=== PATIENT | female | born 1960 | race Caucasian/White ===

== ENCOUNTER → 2017-09-19 14:41 | Outpatient (CLI) | payer OTHER, SELFPAY ==
--- NOTE | 2017-09-19 14:43 | HPBI_ITS ---
MAMMOGRAPHY - BILATERAL SCREENING REASON FOR EXAM: Female, 57 years old. Routine annual screening examination. PERTINENT HISTORY: Non-contributory. TECHNIQUE: Digital bilateral breast hammad (3D mammographic acquisition) in the CC and MLO projections. 2-D mediolateral oblique (MLO) and craniocaudad (CC) views of both breasts were obtained. CAD: Full Field Digital Mammography with Computer Added Detection was performed. COMPARISON: Comparison is made with prior study dated August 02, 2016 and July 26, 2015. FINDINGS: Breast Composition: There are scattered areas of fibroglandular density. There are no dominant masses or suspicious calcifications. Persistent area of architectural distortion in the central left breast. This was worked up on prior examination with additional views. No mass lesion is seen. A repeat sonogram is recommended. No other significant abnormalities are identified. There has been no significant change since the prior study. HPBI/SCREENING MAMM (CAD), BILAT IMPRESSION: Stable bilateral screening mammogram. Correlation with ultrasound of the left breast is recommended for further evaluation. ASSESSMENT CATEGORY: BIRADS Category 0: Incomplete. Need additional imaging evaluation. A letter regarding these results will be sent to the patient by the facility within 30 days. Approximately 10% of breast cancers are not detected by mammography. A normal mammogram should not delay biopsy of a clinically suspicious abnormality. [id number] Electronically Signed: Rhys Rubio MD at 16:07 EST Tel [phone], Service support ,
== END ==
PROVIDERS: Family Provider Family Medicine; PCP Family Medicine; Visit Provider Family Medicine
DX: Z12.31 Encounter for screening mammogram for malignant neoplasm of breast (principal); Z80.41 Family history of malignant neoplasm of ovary
CPT/HCPCS: 77063; 77067

== ENCOUNTER → 2017-09-25 10:15 | Outpatient (CLI) | payer OTHER, SELFPAY ==
--- NOTE | 2017-09-25 10:18 | US_ITS ---
STUDY: ULTRASOUND TRANSVAGINAL CLINICAL: Female, 57 years old. Status post hysterectomy, history of uterine cancer, family history of ovarian cancer TECHNIQUE: Transvaginal COMPARISON: Prior study of August 02, 2016 FINDINGS: Uterus is absent in accordance with history of hysterectomy. Normal right ovary, measuring 2.7 x 2.3 x 1.6 cm. There are multiple follicles without a dominant cyst. The left ovary was not identified. There is no free fluid in the pelvis. Polycystic ovary disease: No. US/Transvaginal Non- IMPRESSION: Uterus not identified in accordance with history of hysterectomy. The left ovary was not identified. The right ovary appears normal. There is no fluid in the cul-de-sac. Electronically Signed: Cleveland Cervantes MD at 16:59 EST , Service support ,
--- NOTE | 2017-09-25 10:19 | US_ITS ---
STUDY: ULTRASOUND BREAST - LEFT REASON FOR EXAM: Female, 57 years old. Abnormal screening mammogram. TECHNIQUE: Axial and longitudinal images of the LEFT breast were performed with a high resolution ultrasound transducer. COMPARISON: Comparison is made with prior mammogram dated September 19, 2017. FINDINGS: LEFT Breast: There is a 5 mm x 2 mm x 3 mm hypoechoic nodule with mild irregularity at the 1:30 position of the breast at 2 cm from the nipple. A biopsy is recommended for further evaluation. US/Breast Limited Unilateral IMPRESSION: Subcentimeter slightly irregular hypoechoic nodule at the 1:30 position of the breast at 2 cm from the nipple. A biopsy is recommended for further evaluation. ASSESSMENT CATEGORY: BIRADS Category 4: Suspicious - Biopsy Should Be Considered. A letter regarding these results will be sent to the patient by the facility within 30 days. Electronically Signed: Rhys Rubio MD at 12:46 EST Tel [phone], Service support ,
== END ==
PROVIDERS: Family Provider Family Medicine; PCP Family Medicine; Visit Provider Family Medicine
DX: R92.8 Other abnormal and inconclusive findings on diagnostic imaging of breast (principal); Z85.43 Personal history of malignant neoplasm of ovary; Z85.42 Personal history of malignant neoplasm of other parts of uterus; Z90.710 Acquired absence of both cervix and uterus
CPT/HCPCS: 76642; 76830; 93976

== ENCOUNTER → 2017-10-05 11:50 | Outpatient (CLI) | payer OTHER, SELFPAY ==
--- NOTE | 2017-10-05 | BRBX_PTH ---
PATIENT: ROULA TODD LOC: U#:[id number] AGE/SX: 64/F ROOM: RE10/05/[address]: Dr. Valeria Taveras MD : 1960 BED: DIS: SPEC #: [id number] RECD: 10/05/17 14:35 STATUS: GABRIELLE [place] #: [id number] MYRIAM: 10/05/17 00:[address]: Valeria Taveras DEPT: SURGICAL PATHOLOGY RECD BY: Dave Novak ENTERED: 10/05/17 14:35 SP TYPE: BREAST BX OTHR DR: Dr. Eamon Florian DO Tissues: Left breast, NOS Procedures: Surgery Specimen Level IV HEADER OPERATION: Left breast biopsy PRE-OP DIAGNOSIS: Left breast mass TISSUE SUBMITTED: Left breast mass ISCHEMIC TIME: <60 seconds FIXATION TIME: 56.5 hours MICROSCOPIC DIAGNOSIS Left breast mass, core biopsy: Fragments of benign breast tissue with a minute fibrous nodule (0.1 cm in greatest dimension). Negative for atypia or malignancy in the submitted specimen. TARAH:valentina 10/08/17 COMMENT Correlation with clinical, radiologic findings and appropriate follow up are necessary. MICROSCOPIC DESCRIPTION Slides are reviewed. GROSS DESCRIPTION Received in fixative is one container labeled with the patient's name and designated left breast. The specimen consists of multiple irregular fragments of white-yellow soft tissue that in aggregate measure 2.2 x 1.1 x 0.1 cm. The specimen is totally submitted in one cassette. / AM:valentina 10/05/17 TC:5 CPT: 00584
--- NOTE | 2017-10-05 12:00 | US_ITS ---
STUDY: ULTRASOUND BREAST - LEFT REASON FOR EXAM: Female, 57 years old. Ultrasound guided left breast biopsy. TECHNIQUE: Axial and longitudinal images of the LEFT breast were performed with a high resolution ultrasound transducer. COMPARISON: Comparison is made with prior sonogram dated September 25, 2017. FINDINGS: LEFT Breast: Under direct sonographic guidance, the surgeon performed for biopsies of the 6 mm x 4 mm x 3 mm hypoechoic nodule at the 1:30 position breast at 2 sinus or nipple. US/US Breast Biopsy 1st Lesion IMPRESSION: Successful ultrasound guided breast biopsy. ASSESSMENT CATEGORY: BIRADS Category 2: Benign. A letter regarding these results will be sent to the patient by the facility within 30 days. Electronically Signed: Rhys Rubio MD at 13:06 EST Tel [phone], Service support ,
--- NOTE | 2017-10-05 12:44 | PCM.OP.BLANK ---
Operative Report Date of Procedure: 10/05/17 Procedure: ultrasound-guided core biopsy Indications: 57 year-old female with hypoechoic irregular nodule at 130 in the left breast 2 centimeters from the nipple. Risk benefits were discussed the patient and she elected to proceed with ultrasound guided core biopsy with clip placement Description of procedure: Patient was brought into the ultrasound room in the left breast was marked. A timeout was completed verifying correct patient, procedure, site, specially, prior to beginning procedure. The last breast was prepped and draped in usual sterile fashion and using local anesthesia was obtained with 1% lidocaine with epi. The lesion was located with the ultrasound. Small incision was made with 11 blade to introduced the mammotome through the skin. Under ultrasound guidance multiple core samples were obtained using then 13-gauge mammotome and sent in formalin for pathology. The mammotome mammostar clip was then deployed into the biopsy cavity under ultrasound guidance and a picture was taken. Upon completion procedure hemostasis was obtained and a Steri-Strip and OpSite were placed. Patient was then taken to the mammography suite for clip verification. The clip was verified. The patient tolerated the procedure well and was discharged from the breast imaging department good condition. complications: none
== END ==
PROVIDERS: Family Provider Family Medicine; PCP Family Medicine; Visit Provider Surgery
DX: N63.21 Unspecified lump in the left breast, upper outer quadrant (principal)
CPT/HCPCS: 19083; 88305

== ENCOUNTER → 2017-11-09 16:40 | Outpatient (CLI) | payer OTHER, SELFPAY ==
--- NOTE | 2017-11-09 16:50 | CT_ITS ---
STUDY: CT CERVICAL SPINE WITHOUT CONTRAST REASON FOR EXAM: Female, 57 years old. Neck pain and tenderness x9 months. RADIATION DOSAGE (If Supplied By Facility): CTDIvol = ( 24.16 ) mGy, DLP = ( 493.25 ) mGycm TECHNIQUE: High resolution transaxial imaging was performed without contrast material. Sagittal and coronal images were reconstructed. Individualized dose optimization techniques were used for this CT. COMPARISON: None FINDINGS: Normal craniovertebral junction. Normal predental space. Normal lateral atlantoaxial articulations. Normal odontoid process. Cervical kyphosis may be positional. Normal vertebral bodies and posterior osseous elements. C2-3: Normal endplates. Normal disc height and morphology. Normal central canal and intervertebral neuroforamina. C3-4: Normal endplates. Normal disc height and morphology. Normal central canal and intervertebral neuroforamina. C4-5: Normal endplates. Normal disc height and morphology. Normal central canal and intervertebral neuroforamina. C5-6: Pronounced disc space height narrowing with minimal anterior and posterior marginal spurs. Schmorl's nodes in the vertebral endplates. Minimal calcification of the posterior bulging annulus. Normal central canal and bilateral intervertebral neural foramina. C6-7: Normal endplates. Anterior and posterior marginal spurs. Normal central canal and bilateral intervertebral neural foramina. C7-T1: Normal endplates. Normal disc height and morphology. Normal central canal and intervertebral neuroforamina. T1-T2: Normal endplates. Normal disc height and morphology. Normal central canal and bilateral intervertebral neural foramina. Normal visualized soft tissue structures. CT/Spine Cervical without Contras IMPRESSION: 1. No CT evidence of cervical extruded disc fragment, spinal stenosis or nerve root displacement. 2. Pronounced C5-C6 degenerative disc space height narrowing with posterior marginal spurs and posterior annular calcification of the small posterior bulging annulus. 3. Pronounced C6-C7 degenerative disc space height narrowing with posterior marginal spurs. Electronically Signed: Rasheed Tellez MD at 10:13 EDT , Service support ,
--- NOTE | 2017-11-09 16:51 | CT_ITS ---
STUDY: CTA NECK WITH CONTRAST REASON FOR EXAM: Female, 57 years old. Neck pain and tenderness x9 months. RADIATION DOSAGE (If Supplied By Facility): CTDIvol = ( 12.89 ) mGy, DLP = ( 523.92 ) mGycm TECHNIQUE: CT angiography with multi-detector data acquisition was performed from the aortic arch to the skull base following intravenous administration of 100 ml of Isovue 370 contrast. MIP images were reconstructed from the axial data set. Post-processing of the angiographic images was performed, with multiplanar reformation and 3D reconstruction. Individualized dose optimization techniques were used for this CT. COMPARISON: None. FINDINGS: AORTIC ARCH: Normal visualized aortic arch. Normal origins of the brachiocephalic, left common carotid, and left subclavian arteries. RIGHT CAROTID ARTERIES: Normal right common carotid artery (CCA). Normal right internal carotid bulb and origin of the right internal carotid (ICA) artery without a hemodynamically significant stenosis. Normal visualized cervical portion of the right internal carotid artery. Normal origin of the right external carotid artery (ECA). LEFT CAROTID ARTERIES: Normal left common carotid artery (CCA). Normal left internal carotid artery bulb and origin of the left internal carotid (ICA) artery without a hemodynamically significant stenosis. Normal visualized cervical portion of the left internal carotid artery. Normal origin of the left external carotid artery (ECA). VERTEBRAL ARTERIES: Normal bilateral vertebral arteries. The left vertebral artery slightly more dominant. Widely patent subclavian origins of both vertebral arteries. CT/CTA Neck W/WO Contrast IMPRESSION: 1. Normal aortic arch and origins of the great vessels and the subclavian origins of both vertebral arteries. 2. Normal and widely patent common carotid arteries, bilateral common carotid bifurcations, bilateral internal and external carotid arteries. Electronically Signed: Rasheed Tellez MD at 10:16 EDT , Service support ,
== END ==
PROVIDERS: Family Provider Family Medicine; PCP Family Medicine; Visit Provider Family Medicine
DX: M54.2 Cervicalgia (principal); R22.2 Localized swelling, mass and lump, trunk; R20.0 Anesthesia of skin
CPT/HCPCS: 70498; 72125; Q9967

== ENCOUNTER → 2018-10-18 11:17 | Outpatient (CLI) | payer OTHER, SELFPAY ==
[2017-10-01 15:12] VITALS: BMI 37.0
[2018-10-18 12:36] LABS: Absolute Lymphocyte Count 1.67 X10^3/ul (0.83-4.51); Absolute Neutrophil Count 5.1 X10^3/uL (2.0-7.7); Basophil# 0.02 X10^3/uL; Basophil% 0.3 % (0-1); Eosinophil# 0.06 X10^3/uL; Eosinophils% 0.8 % (0-5); Hematocrit 39.8 % (37-47); Lymphocyte # 1.67 X10^3/ul (4.0); Lymphocyte % 23.6 % (19-41); Mean Corp Hgb Conc 32.7 g/gl (32-36); Mean Corpuscular Hgb 28.3 pg (27.0-32.0); Mean Corpuscular Volume 86.7 fL (81-99); Mean Platelet Vol. 9.9 fl (6.2-12.0); Monocyte# 0.22 X10^3/uL; Monocyte% 3.1 % (0-10); Neutrophil # 5.06 X10^3/uL (2.7-7.7); Neutrophil % 71.5 % (47-70); Platelet Count 249 K/mm3 (150-450); RBC Distribution Width CV 13.5 % (11.6-14.6); RBC Distribution Width SD 42.6 fl (35.1-43.9); Red Blood Count 4.59 M/mm3 (4.2-5.4); White Blood Count 7.1 K/mm3 (4.4-11.0)
[2018-10-18 12:37] LABS: POSITIVE COUNT NO; POSITIVE DIFFERENTIAL NO; POSITIVE MORPHOLOGY NO
[2018-10-18 13:13] LABS: Vitamin D,25 Hydroxy 13.8 ng/mL (29.95-100.01)
[2018-10-18 13:20] LABS: ALB/GLOB Ratio 0.9 RATIO (0.9-2.4); AST(SGOT) 49 U/L (15-37); Alanine Aminotransfer ALT/SGPT 104 U/L (13-56); Albumin, Serum 3.8 g/dL (3.2-5.0); Alkaline Phosphatase 102 U/L (45-117); Anion Gap 8 (5-15); BUN 11 mg/dL (7-18); BUN/Creat Ratio 14.3 RATIO (10-20); Calcium,Total 9.2 mg/dL (8.5-10.1); Chloride 107 mmol/L (98-107); Cholesterol 218 mg/dL (200); Creatinine, Serum 0.77 mg/dL (0.55-1.02); EST Glomerular Filtration Rate 82 mL/min (>60); Est Glom Filt Rate - Afr Amer 99 mL/min (>60); Globulin 4.2 g/dL (2.2-4.2); Glucose 97 mg/dL (74-106); High Density Lipoprotein 43 mg/dL; Potassium 4.2 mmol/L (3.5-5.1); Sodium Level 141 mmol/L (136-145); Thyroid Stim Hormone (TSH) 0.82 uIU/mL (0.358-3.74); Triglycerides 267 mg/dL; Very Low Density Lipoprotein 53 mg/dL (5-40)
== END ==
PROVIDERS: Family Provider Family Medicine; PCP Family Medicine; Visit Provider Family Medicine
DX: Z00.00 Encounter for general adult medical examination without abnormal findings (principal); E03.9 Hypothyroidism, unspecified; E55.9 Vitamin D deficiency, unspecified
CPT/HCPCS: 36415; 80053; 80061; 82306; 84439; 84443; 85025

== ENCOUNTER → 2018-11-22 08:42 | Outpatient (CLI) | payer OTHER, SELFPAY ==
--- NOTE | 2018-11-22 08:45 | US_ITS ---
STUDY: ULTRASOUND OF THE FEMALE PELVIS - COMPLETE REASON FOR EXAM: Female, 58 years old. Family history of ovarian carcinoma LMP: Unknown. TECHNIQUE: Transabdominal and Transvaginal TECHNICAL QUALITY: Adequate. COMPARISON: 09/25/17 FINDINGS: The uterus has been previously removed The right ovary is visualized. The right ovary measures 2.0 x 1.1 x 1.5 cm. There is no right ovarian cyst or ovarian mass. There is no visualized right adnexal mass or complex lesion. There is normal arterial and normal venous vascularity. The left ovary is visualized. The left ovary measures 2.6 x 1.5 x 1.3 cm. There is no left ovarian cyst or ovarian mass. There is no visualized left adnexal mass or complex lesion. There is normal arterial and normal venous vascularity. There is no fluid in the cul-de-sac. The bladder is sonographically normal US/Transvaginal Non- IMPRESSION: No suspicious sonographic findings Electronically Signed: Ta Head MD at 10:43 EDT , Service support ,
--- NOTE | 2018-11-22 08:45 | BI_ITS ---
MAMMOGRAPHY - BILATERAL SCREENING 3-D TOMOSYNTHESIS REASON FOR EXAM: Female, 58 years old. Bilateral Screening 3-D tomosynthesis PERTINENT HISTORY: No significant family history. TECHNIQUE: 2-D mammograms and 3-D Tomosynthesis of the breast (s) were performed. CAD was performed. COMPARISON: 09/19/17 FINDINGS: The breast composition is composed of scattered fibroglandular density. Scattered benign calcifications are seen. No dense spiculated masses or suspicious microcalcifications are identified. No architectural distortion is identified. There is no skin thickening or retraction. There has been no significant change since the prior study. BI/SCREENING MAMM (CAD), BILAT IMPRESSION: No mammographic signs of malignancy. Routine yearly mammograms recommended. ASSESSMENT CATEGORY: BIRADS Category 2: Benign. A letter regarding these results will be sent to the patient by the facility within 30 days. FOLLOW UP RECOMMENDATION: Yearly follow up mammogram recommended. (A) Approximately 10% of breast cancers are not detected by mammography. A normal mammogram should not delay biopsy of a clinically suspicious abnormality. Electronically Signed: Ta Head MD at 10:53 EDT , Service support ,
== END ==
PROVIDERS: Family Provider Family Medicine; PCP Family Medicine; Referring Provider Family Medicine; Visit Provider Family Medicine
DX: Z12.31 Encounter for screening mammogram for malignant neoplasm of breast (principal); Z80.41 Family history of malignant neoplasm of ovary
CPT/HCPCS: 76830; 77063; 77067; 93976

== ENCOUNTER → 2018-12-09 15:54 | Outpatient (CLI) | payer OTHER, SELFPAY ==
--- NOTE | 2018-12-09 15:59 | VDLE_ITS ---
Reason For Study: Pain/Swelling RIGHT GSV is normal. CFV is compressible, spontaneous, phasic, competent and demonstrates normal augmentation. FV is compressible, spontaneous, phasic, competent and demonstrates normal augmentation. POP V is compressible, spontaneous, phasic, competent and demonstrates normal augmentation. T/P Trunk is compressible. PTV is compressible. RT PerV is compressible. Procedure Exam performed in department. A preliminary report was called and/or faxed to [facility]. Interpretation Summary Deep veins of the right lower extremity are patent and compressible segmentally. There is no evidence of right lower extremity deep vein thrombosis. Valvular competence appears intact within the proximal deep venous system on the right . The right greater saphenous vein appears patent and compressible segmentally. Ordering Physician: Eamon Florian Referring Physician: Eamon Florian Performed By: Lakisha Cifuentes RVT
== END ==
PROVIDERS: Family Provider Family Medicine; PCP Family Medicine; Referring Provider Family Medicine; Visit Provider Family Medicine
DX: M79.89 Other specified soft tissue disorders (principal); M79.604 Pain in right leg
CPT/HCPCS: 93971

== ENCOUNTER → 2019-07-03 11:25 | Outpatient (CLI) | payer OTHER, SELFPAY ==
[2019-07-03 11:00] VITALS: BMI 37.0
[2019-07-03 14:08] LABS: T4 Free Direct 1.24 ng/dL (0.76-1.46); Thyroid Stim Hormone (TSH) 0.74 uIU/mL (0.358-3.74)
== END ==
PROVIDERS: Family Provider Family Medicine; PCP Family Medicine; Referring Provider Internal Medicine Endocrinology, Diabetes & Metabolism; Visit Provider Internal Medicine Endocrinology, Diabetes & Metabolism
DX: E03.8 Other specified hypothyroidism (principal); E06.3 Autoimmune thyroiditis
CPT/HCPCS: 36415; 84439; 84443

== ENCOUNTER → 2019-09-04 09:33 | Outpatient (CLI) | payer OTHER, SELFPAY ==
[2019-07-03 11:00] VITALS: BMI 37.0
[2019-09-04 12:46] LABS: ALB/GLOB Ratio 0.9 RATIO (0.9-2.4); AST(SGOT) 54 U/L (15-37); Alanine Aminotransfer ALT/SGPT 134 U/L (13-56); Albumin, Serum 3.5 g/dL (3.2-5.0); Alkaline Phosphatase 125 U/L (45-117); Anion Gap 7 (5-15); BUN 10 mg/dL (7-18); BUN/Creat Ratio 11.5 RATIO (10-20); Calcium,Total 9.2 mg/dL (8.5-10.1); Chloride 108 mmol/L (98-107); Cholesterol 227 mg/dL (200); Creatinine, Serum 0.87 mg/dL (0.55-1.02); EST Glomerular Filtration Rate 71 mL/min (>60); Est Glom Filt Rate - Afr Amer 86 mL/min (>60); Estradiol 20.5 pg/mL; Globulin 3.7 g/dL (2.2-4.2); Glucose 290 mg/dL (74-106); High Density Lipoprotein 41 mg/dL; Potassium 4.1 mmol/L (3.5-5.1); Protein, Total 7.2 g/dL (6.4-8.2); Sodium Level 140 mmol/L (136-145); Triglycerides 244 mg/dL; Very Low Density Lipoprotein 49 mg/dL (5-40)
[2019-09-04 12:50] LABS: Progesterone Level 0.23 ng/mL (See Comment); Vitamin D,25 Hydroxy 21.9 ng/mL (29.95-100.01)
[2019-09-04 12:54] LABS: Hemoglobin A1c 9.2 % (4.2-6.3)
== END ==
LOC: LAB.FUTURE 09:35 → BFHLAB 01-21 11:50
PROVIDERS: PCP Family Medicine; Visit Provider Family Medicine
DX: K76.0 Fatty (change of) liver, not elsewhere classified (principal); R73.01 Impaired fasting glucose; E55.9 Vitamin D deficiency, unspecified; R53.83 Other fatigue; N95.1 Menopausal and female climacteric states
CPT/HCPCS: 36415; 80053; 80061; 82306; 82533; 82670; 83036; 84144; 84403

== ENCOUNTER → 2019-09-09 08:55 | Outpatient (CLI) | payer OTHER, SELFPAY ==
[2019-07-03 11:00] VITALS: BMI 37.0
[2019-09-09 13:23] LABS: Insulin 54.4 mU/L (2.6-37.6)
== END ==
PROVIDERS: PCP Family Medicine; Visit Provider Family Medicine
DX: R73.9 Hyperglycemia, unspecified (principal)
CPT/HCPCS: 36415; 82533; 83525

== ENCOUNTER → 2020-01-20 14:19 | Outpatient (CLI) | payer OTHER, SELFPAY ==
[2019-07-03 11:00] VITALS: BMI 37.0
--- NOTE | 2020-01-20 14:23 | BI_ITS ---
MAMMOGRAPHY - BILATERAL SCREENING 3-D TOMOSYNTHESIS REASON FOR EXAM: Female, 59 years old. Routine screening PERTINENT HISTORY: NO FAM HX -- LT U/S BX 2018 -- P/H UTERINE CA -HYSTERECTOMY NO RAD OR CHEMO 15+ YRS. AGO. TECHNIQUE: 2-D mammograms and 3-D Tomosynthesis of the breast (s) were performed. CAD was performed. COMPARISON: Multiple recent studies, the most recent from 11/22/2018 FINDINGS: The breast composition is composed of scattered fibroglandular density. Scattered benign calcifications are seen. No dense spiculated masses or suspicious microcalcifications are identified. No architectural distortion is identified. There is no skin thickening or retraction. Stable axillary lymph nodes and stable 1 cm partially calcified nodule in the central breast There has been no significant change since the prior study. BI/SCREEN MAMM (CAD) W/TATIANA BILAT IMPRESSION: No mammographic signs of malignancy. Routine yearly mammograms recommended. ASSESSMENT CATEGORY: BIRADS Category 2: Benign. A letter regarding these results will be sent to the patient by the facility within 30 days. FOLLOW UP RECOMMENDATION: Yearly follow up mammogram recommended. (A) Approximately 10% of breast cancers are not detected by mammography. A normal mammogram should not delay biopsy of a clinically suspicious abnormality. Electronically Signed: Ta Head MD at 7:44 EDT , Service support ,
--- NOTE | 2020-01-20 14:48 | US_ITS ---
STUDY: ULTRASOUND OF THE FEMALE PELVIS - COMPLETE REASON FOR EXAM: Female, 59 years old. SCREENING, FAMILY HX OF OVARIAN CANCER LMP: Unknown. TECHNIQUE: Transabdominal and Transvaginal TECHNICAL QUALITY: Adequate. COMPARISON: 11/22/2018 FINDINGS: The uterus has been previously removed The right ovary is visualized. The right ovary measures 1.5 x 1.3 x 1.8 cm. There is no right ovarian cyst or ovarian mass. There is no visualized right adnexal mass or complex lesion. There is normal arterial and normal venous vascularity. The left ovary is visualized. The left ovary measures 1.8 x 2.0 x 1.6 cm. There is no left ovarian cyst or ovarian mass. There is no visualized left adnexal mass or complex lesion. There is normal arterial and normal venous vascularity. There is no fluid in the cul-de-sac. The bladder is incompletely distended but sonographically unremarkable US/Transvaginal Non- IMPRESSION: No suspicious sonographic findings, no interval change Electronically Signed: Ta Head MD at 8:28 EDT , Service support ,
== END ==
PROVIDERS: PCP Family Medicine; Referring Provider Family Medicine; Visit Provider Family Medicine
DX: Z12.31 Encounter for screening mammogram for malignant neoplasm of breast (principal); Z80.41 Family history of malignant neoplasm of ovary
CPT/HCPCS: 76830; 77063; 77067

== ENCOUNTER → 2021-03-17 10:32 | Outpatient (CLI) | payer OTHER, SELFPAY ==
[2019-07-03 11:00] VITALS: BMI 37.0
--- NOTE | 2021-03-17 10:37 | BI_ITS ---
MAMMOGRAPHY - BILATERAL SCREENING REASON FOR EXAM: Female, 60 years old. Routine annual screening examination. PERTINENT HISTORY: Non-contributory. Prior left ultrasound-guided breast biopsy. TECHNIQUE: Digital bilateral breast tatiana (3D mammographic acquisition) in the CC and MLO projections. 2-D mediolateral oblique (MLO) and craniocaudad (CC) views of both breasts were obtained. CAD: Full Field Digital Mammography with Computer Added Detection was performed. COMPARISON: Comparison is made with prior study dated 01/20/2020 and 11/22/2018. FINDINGS: Breast Composition: There are scattered areas of fibroglandular density. There are no dominant masses or suspicious calcifications. A tissue clip marker is once again seen within a 8.5 mm well-defined nodule in the upper anterior lateral aspect of the left breast. Stable bilateral benign-appearing axillary lymph nodes. No other significant abnormalities are identified. There has been no significant change since the prior study. BI/SCRN MAMM (CAD)W/TATIANA BILAT IMPRESSION: Stable bilateral screening mammogram. Yearly follow-up mammogram recommended. (A) ASSESSMENT CATEGORY: BIRADS Category 2: Benign. A letter regarding these results will be sent to the patient by the facility within 30 days. Approximately 10% of breast cancers are not detected by mammography. A normal mammogram should not delay biopsy of a clinically suspicious abnormality. [id number] Electronically Signed: Rhys Rubio MD at 11:39 EDT , Service support ,
--- NOTE | 2021-03-17 10:37 | US_ITS ---
STUDY: ULTRASOUND OF THE FEMALE PELVIS - COMPLETE REASON FOR EXAM: Female, 60 years old. Family history of ovarian carcinoma. LMP: Patient is postmenopausal. TECHNIQUE: Transvaginal TECHNICAL QUALITY: Adequate. COMPARISON: Comparison is made with prior study dated 01/20/2020. FINDINGS: The patient is status post hysterectomy. The right ovary is visualized. The right ovary measures 1.5 cm x 1 cm x 0.9 cm. There is no right ovarian cyst or ovarian mass. There is no visualized right adnexal mass or complex lesion. There is normal arterial and normal venous vascularity. The left ovary is visualized. The left ovary measures 2.3 cm x 1.9 cm x 1.1 cm. There is no left ovarian cyst or ovarian mass. There is no visualized left adnexal mass or complex lesion. There is normal arterial and normal venous vascularity. There is no fluid in the cul-de-sac. US/Transvaginal Non- IMPRESSION: Status post hysterectomy. The ovaries are unremarkable. Electronically Signed: Rhys Rubio MD at 11:54 EDT , Service support ,
== END ==
PROVIDERS: PCP Family Medicine; Referring Provider Family Medicine; Visit Provider Family Medicine
DX: Z12.31 Encounter for screening mammogram for malignant neoplasm of breast (principal); Z78.0 Asymptomatic menopausal state; Z85.43 Personal history of malignant neoplasm of ovary
CPT/HCPCS: 76830; 77063; 77067

== ENCOUNTER 2022-03-07 14:02 | Emergency (ER) | payer OTHER, SELFPAY ==
[2022-03-07 14:03] VITALS: BP 151/67; PULSE 95; RESP 18; TEMP 36.6; O2SAT 96; BMI 36.1
[2022-03-07 15:29] VITALS: BP 157/78; PULSE 85; RESP 20; TEMP 37.2; O2SAT 96
--- NOTE | 2022-03-07 15:30 | EDS_ITS ---
HPI HPI - GI History of Present Illness Chief Complaint: Nausea/Vomiting Narrative Narrative: 61-year-old female presenting with nausea and vomiting. She states started being sick yesterday. She has no fevers, chills but she does complain of body aches. She tested positive for COVID-19 yesterday. This morning she has had episodes of nausea and vomiting. She is not been able to hold down any food or fluids. She does have some mild diarrhea. She is not having a cough or shortness of breath. No urinary complaints. [facility] Medical History (Updated 03/07/22 @ 17:[address] Kyle Sanchez, ) Abnormal mammogram Allergic rhinitis Anxiety Arthritis of left acromioclavicular joint Asthma Cervical spondylosis Chronic headaches Degenerative joint disease of cervical spine Diabetes Eczema Fatigue Fibromyalgia Gastroesophageal reflux disease Hypertriglyceridemia Hypothyroidism IBS (irritable bowel syndrome) Insomnia Left arm pain Mitral valve prolapse Non-alcoholic fatty liver disease Obesity Vitamin D deficiency Home Medications levothyroxine 137 mcg tablet 137 mcg PO DAILY 06/06/19 [History Last Taken Unknown] temazepam 30 mg capsule 30 mg PO QHS PRN Insomnia 06/06/19 [History Last Taken Unknown] famotidine 20 mg tablet (Pepcid AC) 20 mg PO BID PRN dyspepsia #20 tabs 03/07/22 [Rx Last Taken Unknown] ondansetron 4 mg disintegrating tablet 4 mg PO Q8H PRN nausea and vomiting #14 tabs 03/07/22 [Rx Last Taken Unknown] Allergy/AdvReac Type Severity Reaction Status Date / Time brompheniramine Allergy Unknown Unknown Verified 03/07/22 15:36 [From Dimetapp (brompheniramine-PPA)] phenylpropanolamine Allergy Unknown Unknown Verified 03/07/22 15:36 [From Dimetapp (brompheniramine-PPA)] Penicillins Allergy Anaphylaxis Verified 03/07/22 15:36 Sulfa (Sulfonamide Allergy Anaphylaxis Verified 03/07/22 15:36 Antibiotics) Family History Sister Cancer Malignant tumor of ovary Father Diabetes Heart disease High cholesterol Parkinsons disease Leukemia Mother Hypertension Brother Seizures Surgical History History of cholecystectomy History of total hysterectomy S/P partial hysterectomy Social History Smoking Status: Former smoker alcohol intake: never substance use type: does not use what type of physical activity do you participate in: other frequency: daily ROS ROS ED Constitutional Constitutional ED: Denies chills or fever(s) ENT ENT ED: Denies rhinorrhea or sore throat Cardiovascular Cardiovascular: Denies palpitations Respiratory/Chest Respiratory/Chest: Denies cough or dyspnea Gastrointestinal Gastrointestinal: Reports nausea and vomiting Genitourinary Genitourinary ED: Denies dysuria or hematuria Musculoskeletal Musculoskeletal: Reports myalgias; Denies arthralgias Integumentary Denies abscess or Abrasions Neurologic Neurologic: Reports headache(s); Denies paresthesias Psychiatric Psychiatric: Denies anxiety or depression Endocrine Endocrinology: Denies polydipsia or polyphagia EXAM Physical Exam Const Vital Signs: 03/07/22 14:03 03/07/22 15:29 Temperature 97.8 F 98.9 F Temperature Source Temporal Oral Pulse Rate 95 85 Respiratory Rate 18 20 H Blood Pressure 151/67 H 157/78 H Blood Pressure Mean 95 104 Pulse Ox 96 96 Oxygen Delivery Method Room Air Room Air Positive well nourished General Appearance ED: NAD; Negative for pallor HEENT Reports moist mucous membranes normocephalic and atraumatic Eyes PERRL and EOMs intact bilaterally Resp normal respiratory effort and clear to auscultation bilaterally Cardio regular rate and regular rhythm GI non-tender and non-distended Neuro CN's II-XII intact bilaterally, moves all extremities and no sensory deficits no lito Sensorium / Orientation: alert Psych mental status grossly normal and thought process normal Skin General Skin Exam: Negative for jaundice or pallor MDM MDM MDM Narrative Medical decision making narrative: Patient presented with nausea/vomiting since this morning. She tested positive for COVID-19 yesterday. She does have body aches. She denies any respiratory complaints. Vital signs are stable and she is afebrile. Patient given oral Zofran and Pepcid in the ED. On reevaluation at 5 PM patient is feeling improved. She has a mild headache. She was offered Tylenol and now that her nausea is improved but she states she will go home and take this. At this point I will give her a prescription for Zofran for home. He can return precautions. Discharge Plan Triage Chief Complaint: Nausea/Vomiting ED Provider: Kyle Sanchez Dx/Rx/DC Orders Clinical Impression: COVID-19 Instructions: Coronavirus Disease 2019 (COVID-19): Caring for Yourself or Others Prescriptions: New ondansetron 4 mg tablet,disintegrating 4 mg PO Q8H PRN (Reason: nausea and vomiting) Qty: 14 0RF famotidine [Pepcid AC] 20 mg tablet 20 mg PO BID PRN (Reason: dyspepsia) Qty: 20 0RF No Action levothyroxine 137 mcg tablet 137 mcg PO DAILY temazepam 30 mg capsule 30 mg PO QHS PRN (Reason: Insomnia) Primary Care Provider: Eamon Florian Referrals: Eamon Florian DO [Primary Care Provider] - Disposition Disposition: Home, Self Care
[2022-03-07] MEDS: Ondansetron ODT 4 MG Tablet PO (15:43)
[2022-03-07] MEDS: Famotidine 20 MG Tablet PO (15:43)
[2022-03-07 17:18] VITALS: BP 178/67; PULSE 89; RESP 17; O2SAT 96
== END 2022-03-07 17:21 | disposition home or self-care (01) ==
PROVIDERS: Emergency Provider Student in an Organized Health Care Education/Training Program; PCP Family Medicine; Visit Provider Student in an Organized Health Care Education/Training Program
DX: U07.1 COVID-19 (principal); E11.9 Type 2 diabetes mellitus without complications; R19.7 Diarrhea, unspecified; J45.909 Unspecified asthma, uncomplicated; E78.1 Pure hyperglyceridemia; E03.9 Hypothyroidism, unspecified; K21.9 Gastro-esophageal reflux disease without esophagitis; E66.9 Obesity, unspecified; Z79.890 Hormone replacement therapy; Z79.899 Other long term (current) drug therapy; Z87.891 Personal history of nicotine dependence
CPT/HCPCS: 99283

== ENCOUNTER → 2022-05-30 | Outpatient (CLI) | payer OTHER, SELFPAY ==
[2022-05-30 17:38] LABS: Color, Urine Yellow (Yellow); Glucose, Dipstick Normal (Normal); Ketone-Dipstick 5 mg/dl (Negative); Leukocyte Esterase-Dipstick 500 /ul (Negative); Nitrite-Dipstick Negative (Negative); Occult Blood-Urine Negative /ul (Negative); Protein-Dipstick 30 mg/dl (Negative); Specific Gravity, Urine 1.025 (1.002-1.030); Urine Bilirubin Dipstick Negative (Negative); Urine Clarity Sl. Cloudy (Clear); Urine Urobilinogen Normal (Normal)
[2022-05-30 17:41] LABS: Absolute Lymphocyte Count 1.59 X10^3/uL (0.83-4.51); Absolute Neutrophil Count 5.5 X10^3/uL (2.0-7.7); Basophil# 0.03 X10^3/uL; Basophil% 0.4 % (0-1); Eosinophil# 0.08 X10^3/uL; Hematocrit 43.7 % (37-47); Hemoglobin 14.5 g/dL (12.0-15.0); Lymphocyte # 1.59 X10^3/ul (0.83-4.51); Lymphocyte % 20.7 % (19-41); Mean Corp Hgb Conc 33.2 g/dL (32-36); Mean Corpuscular Hgb 29.6 pg (27.0-32.0); Mean Corpuscular Volume 89.2 fL (81-99); Mean Platelet Vol. 10.1 fl (6.2-12.0); Monocyte# 0.42 X10^3/uL; Monocyte% 5.5 % (0-10); NRBC Flagged by Analyzer 0 % (0-5); Neutrophil # 5.53 X10^3/uL (2.7-7.7); Neutrophil % 72.1 % (47-70); Platelet Count 254 K/mm3 (150-450); RBC Distribution Width CV 13.1 % (11.6-14.6); RBC Distribution Width SD 42.7 fl (35.1-43.9); White Blood Count 7.7 K/mm3 (4.4-11.0)
[2022-05-30 18:00] LABS: Vitamin D,25 Hydroxy 29.3 ng/mL
[2022-05-30 18:01] LABS: AST(SGOT) 17 U/L (15-37); Alanine Aminotransfer ALT/SGPT 41 U/L (13-56); Albumin, Serum 3.8 g/dL (3.2-5.0); Alkaline Phosphatase 85 U/L (45-117); Anion Gap 6 (5-15); BUN 10 mg/dL (7-18); BUN/Creat Ratio 13.9 RATIO (10-20); Calcium,Total 9.7 mg/dL (8.5-10.1); Chloride 106 mmol/L (98-107); Cholesterol 229 mg/dL (200); Creatinine, Serum 0.72 mg/dL (0.55-1.02); EST Glomerular Filtration Rate 88 mL/min (>60); Est Glom Filt Rate - Afr Amer 106 mL/min (>60); Glucose 91 mg/dL (74-106); High Density Lipoprotein 48 mg/dL; Potassium 4.2 mmol/L (3.5-5.1); Protein, Total 7.8 g/dL (6.4-8.2); Sodium Level 138 mmol/L (136-145); T4 Free Direct 1.56 ng/dL (0.76-1.46); Thyroid Stim Hormone (TSH) 0.12 uIU/mL (0.358-3.74); Triglycerides 222 mg/dL; Very Low Density Lipoprotein 44 mg/dL (5-40)
[2022-05-30 18:26] LABS: Hemoglobin A1c 5.9 % (3.8-5.6)
[2022-05-30 18:29] LABS: Microalbumin,Random Urine 43.3 mg/L (NO RANGE EST.); Microalbumin:Creatinine Ratio 14.7 mg/g CRE (<30 mg/g CRE)
== END | disposition home or self-care (01) ==
LOC: BFHLAB 15:17
PROVIDERS: PCP Family Medicine; Visit Provider Family Medicine
DX: Z00.00 Encounter for general adult medical examination without abnormal findings (principal); E11.9 Type 2 diabetes mellitus without complications; E03.9 Hypothyroidism, unspecified; R35.0 Frequency of micturition; E55.9 Vitamin D deficiency, unspecified
CPT/HCPCS: 36415; 80053; 80061; 81002; 82043; 82306; 82570; 83036; 84439; 84443; 85025

== ENCOUNTER → 2022-06-08 | Outpatient (CLI) | payer OTHER, SELFPAY ==
--- NOTE | 2022-06-08 12:14 | US_ITS ---
STUDY: ULTRASOUND OF THE FEMALE PELVIS - COMPLETE REASON FOR EXAM: Female, 61 years old. H OF -- OVARIAN CANCER TECHNIQUE: Endovaginal. Transvaginal US was obtained to better visualized the ovaries. COMPARISON: 03.17.21 FINDINGS: The uterus is surgically absent. The right ovary is visualized. The right ovary measures 2.4 cm. There is no right ovarian cyst or ovarian mass. There is no visualized right adnexal mass or complex lesion. There is normal arterial and normal venous vascularity. The left ovary is visualized. The left ovary measures 2.5 cm. There is no left ovarian cyst or ovarian mass. There is no visualized left adnexal mass or complex lesion. There is normal arterial and normal venous vascularity. There is no fluid in the cul-de-sac. Unremarkable urinary bladder. US/Transvaginal Non- IMPRESSION: There are no acute findings. Electronically Signed: Ash Kendrick MD at 17:25 EST ,
== END | disposition home or self-care (01) ==
PROVIDERS: PCP Family Medicine; Visit Provider Family Medicine
DX: Z90.710 Acquired absence of both cervix and uterus (principal); Z80.41 Family history of malignant neoplasm of ovary
CPT/HCPCS: 76830

== ENCOUNTER → 2022-06-13 | Outpatient (CLI) | payer OTHER, SELFPAY ==
--- NOTE | 2022-06-13 10:27 | BI_ITS ---
MAMMOGRAPHY - BILATERAL SCREENING REASON FOR EXAM: Female, 61 years old. Routine annual screening examination. PERTINENT HISTORY: Non-contributory. TECHNIQUE: Digital bilateral breast tatiana (3D mammographic acquisition) in the CC and MLO projections. 2-D mediolateral oblique (MLO) and craniocaudad (CC) views of both breasts were obtained. CAD: Full Field Digital Mammography with Computer Added Detection was performed. COMPARISON: Comparison is made with prior study 03/17/2021 and 01/20/2020. FINDINGS: Breast Composition: There are scattered areas of fibroglandular density. There are no dominant masses or suspicious calcifications. Interstitial clip marker is seen within the 5.9 mm nodule in the anterior slightly upper lateral aspect of the left breast. Stable small benign appearing bilateral axillary lymph nodes. No other significant abnormalities are identified. There has been no significant change since the prior study. BI/SCRN MAMM (CAD)W/TATIANA BILAT IMPRESSION: Stable bilateral screening mammogram. Yearly follow-up mammogram recommended. (A) ASSESSMENT CATEGORY: BIRADS Category 2: Benign. A letter regarding these results will be sent to the patient by the facility within 30 days. Approximately 10% of breast cancers are not detected by mammography. A normal mammogram should not delay biopsy of a clinically suspicious abnormality. [id number] Electronically Signed: Rhys Rubio MD at 12:44 EST ,
== END | disposition home or self-care (01) ==
LOC: OPBI 10:25
PROVIDERS: PCP Family Medicine; Visit Provider Family Medicine
DX: Z12.31 Encounter for screening mammogram for malignant neoplasm of breast (principal)
CPT/HCPCS: 77063; 77067

== ENCOUNTER → 2023-05-14 | Outpatient (CLI) | payer OTHER, SELFPAY ==
[2023-05-14 15:27] LABS: Absolute Neutrophil Count 5.1 X10^3/uL (2.0-7.7); Basophil# 0.04 X10^3/uL; Basophil% 0.5 % (0-1); Eosinophils% 1.4 % (0-5); Hematocrit 47.6 % (37-47); Hemoglobin 15.7 g/dL (12.0-15.0); Lymphocyte % 23.1 % (19-41); Mean Corpuscular Hgb 29.1 pg (27.0-32.0); Mean Corpuscular Volume 88.1 fL (81-99); Monocyte# 0.39 X10^3/uL; Monocyte% 5.3 % (0-10); NRBC Flagged by Analyzer 0 % (0-5); Neutrophil # 5.11 X10^3/uL (2.7-7.7); Neutrophil % 69.4 % (47-70); Platelet Count 250 K/mm3 (150-450); RBC Distribution Width CV 12.8 % (11.6-14.6); RBC Distribution Width SD 41.3 fl (35.1-43.9); White Blood Count 7.4 K/mm3 (4.4-11.0)
[2023-05-14 15:40] LABS: Hemoglobin A1c 10.1 % (3.8-5.6)
[2023-05-14 15:43] LABS: Vitamin D,25 Hydroxy 23.8 ng/mL
[2023-05-14 15:46] LABS: AST(SGOT) 100 U/L (15-37); Alanine Aminotransfer ALT/SGPT 172 U/L (13-56); Alkaline Phosphatase 135 U/L (45-117); Anion Gap 6 (5-15); BUN 16 mg/dL (7-18); BUN/Creat Ratio 16.1 RATIO (10-20); Calcium,Total 9.7 mg/dL (8.5-10.1); Chloride 104 mmol/L (98-107); Cholesterol 263 mg/dL (200); Creatinine, Serum 0.99 mg/dL (0.55-1.02); EST Glomerular Filtration Rate 60 mL/min (>60); Est Glom Filt Rate - Afr Amer 73 mL/min (>60); Globulin 4.2 g/dL (2.2-4.2); Glucose 310 mg/dL (74-106); High Density Lipoprotein 48 mg/dL; Potassium 4.6 mmol/L (3.5-5.1); Protein, Total 8.2 g/dL (6.4-8.2); Sodium Level 137 mmol/L (136-145); Thyroid Stim Hormone (TSH) 2.85 uIU/mL (0.358-3.74); Triglycerides 221 mg/dL; Very Low Density Lipoprotein 44 mg/dL (5-40)
== END | disposition home or self-care (01) ==
LOC: BFHLAB 11:22
PROVIDERS: PCP Family Medicine; Referring Provider Family Medicine; Visit Provider Family Medicine
DX: Z00.00 Encounter for general adult medical examination without abnormal findings (principal); E11.9 Type 2 diabetes mellitus without complications; N39.0 Urinary tract infection, site not specified; E03.9 Hypothyroidism, unspecified; E55.9 Vitamin D deficiency, unspecified
CPT/HCPCS: 36415; 80053; 80061; 82043; 82306; 82570; 83036; 84443; 85025; 87086; 87088

== ENCOUNTER 2023-05-24 19:04 | Emergency (ER) | payer OTHER, SELFPAY ==
[2023-05-24 19:05] VITALS: BP 162/71; PULSE 92; RESP 18; TEMP 36.1; O2SAT 99; BMI 37.0
--- NOTE | 2023-05-24 20:07 | EDS_ITS ---
HPI History of Present Illness Chief Complaint: Hyperglycemia Informant: patient Narrative Narrative: Patient is a 62-year-old female presenting with blurred vision and elevated blood sugar. Dates that she recently saw her doctor (Dr. Florian) and was found to have an A1c of 10.1. She was prescribed Ozempic and her doctor thought she been taking it but had not been approved for insurance. She notes that she has had blood sugars issues in the past and about a year ago had been on metformin but it gave her horrible abdominal pain and could not tolerate it. She is not on anything for diabetes. Today she notes her blood sugar was 454 and she decided come to the ER. She was in the past week her blood sugars been between 300s and 400s. She has had increased thirst and increased urination. With increased urination she is having increased discomfort from wiping so much. She denies any vaginal odor or discharge consistent with a yeast infection. She denies any dysuria. She notes she did recently complete a course of Macrobid for UTI. She denies any chest pain or difficulty breathing. No she does have fibromyalgia so she often has pains but denies any acute changes. Currently denies any nausea, vomiting or change in bowel habits. No other complaints at this time. [facility] Medical History Abnormal mammogram Allergic rhinitis Anxiety Arthritis of left acromioclavicular joint Asthma Cervical spondylosis Chronic headaches Degenerative joint disease of cervical spine Diabetes Eczema Fatigue Fibromyalgia Gastroesophageal reflux disease Hypertriglyceridemia Hypothyroidism IBS (irritable bowel syndrome) Insomnia Left arm pain Mitral valve prolapse Non-alcoholic fatty liver disease Obesity Vitamin D deficiency Home Medications levothyroxine 137 mcg tablet 137 mcg PO DAILY 06/06/19 [History Last Taken Unknown] temazepam 30 mg capsule 30 mg PO QHS PRN Insomnia 06/06/19 [History Last Taken Unknown] Allergy/AdvReac Type Severity Reaction Status Date / Time brompheniramine Allergy Unknown Unknown Verified 05/24/23 19:07 [From Dimetapp (brompheniramine-PPA)] phenylpropanolamine Allergy Unknown Unknown Verified 05/24/23 19:07 [From Dimetapp (brompheniramine-PPA)] Penicillins Allergy Anaphylaxis Verified 05/24/23 19:07 Sulfa (Sulfonamide Allergy Anaphylaxis Verified 05/24/23 19:07 Antibiotics) Family History Sister Cancer Malignant tumor of ovary Father Diabetes Heart disease High cholesterol Parkinsons disease Leukemia Mother Hypertension Brother Seizures Surgical History History of cholecystectomy History of total hysterectomy S/P partial hysterectomy Social History Smoking Status: Former smoker alcohol intake: never substance use type: does not use what type of physical activity do you participate in: other frequency: daily ROS ROS ED Constitutional Constitutional ED: Denies chills or fever(s) Eyes Eyes: Reports blurry vision ENT ENT ED: Denies rhinorrhea or sore throat Cardiovascular Cardiovascular: Denies chest pain Respiratory/Chest Respiratory/Chest: Denies cough Gastrointestinal Gastrointestinal: Denies abdominal pain, diarrhea, nausea or vomiting Genitourinary Genitourinary ED: Reports urinary frequency Musculoskeletal Musculoskeletal: Reports myalgias Integumentary Denies rash Neurologic Neurologic: Denies headache(s) or weakness Psychiatric Psychiatric: Denies anxiety Endocrine Endocrinology: Reports polydipsia and polyuria EXAM Physical Exam Const Vital Signs: 05/24/23 19:05 05/24/23 20:07 Temperature 97 F L Temperature Source Temporal Pulse Rate 92 Respiratory Rate 18 Respiratory Effort Normal Respiratory Pattern Normal Blood Pressure 162/71 H Blood Pressure Mean 101 Pulse Ox 99 Oxygen Delivery Method Room Air Positive well nourished and well developed General Appearance ED: well developed and NAD HEENT Reports dry mucous membranes Mouth ED: Yes dry mucous membranes Mouth: dry mucous membranes Eyes PERRL and EOMs intact bilaterally Neck supple Chest Wall inspection of chest normal and palpation of chest normal Resp normal respiratory effort and clear to auscultation bilaterally Cardio regular rate, regular rhythm and no murmurs GI normal to inspection, nondistended, normoactive bowel sounds and non-tender Extremity normal to inspection Neuro oriented x3 Sensorium / Orientation: alert Motor Exam: Negative for general weakness Psych mental status grossly normal Skin no rashes or lesions noted and no wounds MDM MDM MDM Narrative Medical decision making narrative: Patient is presenting with blurred vision and elevated blood sugar with a diagnosis of diabetes its not treated at this time. Differential includes hyperglycemia associated with diabetes mellitus, DKA, HH NK as well as UTI and electrolyte abnormality. We will start with IV fluids and check labs including acetone. Labs remarkable for hyperglycemia the glucose of 473 however she has a normal anion gap, normal bicarb and negative acetone level. She has a chronic appearing transaminitis which is stable. Her creatinine is at her baseline at 1.05. Patient is given IV fluids in the ER and on repeat glucose she is now 338. Will be given 8 units of insulin in the ER. Case is discussed with her PCP, Dr. Florian, he states that he is called in glipizide to the pharmacy. Patient states that she initially went to the pharmacy to pick it up but the pharmacist was concerned about her blood sugar bl urry vision and there otherwise I recommend she come to the ER. Urine culture is sent as urinalysis is consistent with contamination but does have 5-10 white blood cells the patient has been having frequency. She does not have fever or leukocytosis I do not think she requires antibiotics at this time. This was discussed with her PCP who is agreeable as well. Patient given return precautions. Counseled on signs and symptoms of hypoglycemia. Counseled on diabetic diet. Discharged home in stable and improved condition. Lab Data Attestation: I reviewed the patient's lab results. Labs: Laboratory Results - last 24 hr 05/24/23 05/24/23 05/24/23 20:00 20:05 21:26 WBC 6.3 RBC 4.90 Hgb 14.7 Hct 43.3 MCV 88.4 MCH 30.0 MCHC 33.9 RDW Std Deviation 41.2 RDW Coeff of Henri 12.7 Plt Count 222 MPV 10.1 Immature Gran % (Auto) 0.500 Neut % (Auto) 59.5 Lymph % (Auto) 30.9 Clinch % (Auto) 6.4 Eos % (Auto) 2.2 Baso % (Auto) 0.5 Absolute Neuts (auto) 3.7 Absolute Lymphs (auto) 1.93 Nucleated RBC % 0 Sodium 136 Potassium 4.3 Chloride 103 Carbon Dioxide 27.0 Anion Gap 6 BUN 18 Creatinine 1.05 H Estim Creat Clear Calc 56.04 Est GFR (MDRD) Af Amer 68 Est GFR (MDRD) Non-Af 56 L BUN/Creatinine Ratio 17.1 Glucose 473 H* Calcium 9.7 Total Bilirubin 0.40 AST 77 H ALT 172 H Alkaline Phosphatase 134 H Total Protein 7.6 Albumin 3.8 Globulin 3.8 Albumin/Globulin Ratio 1.0 Urine Color Yellow Urine Clarity Clear Urine pH 6.5 Ur Specific [place] 1.015 Urine Protein Negative Urine Glucose (UA) 1000 H Urine Ketones Negative Urine Occult Blood 10 H Urine Nitrite Negative Urine Bilirubin Negative Urine Urobilinogen Normal Ur Leukocyte Esterase 100 H Urine RBC 0 SEEN Urine WBC 5-10 SEEN Ur Squamous Epith Cells 0-5 SEEN Urine Bacteria RARE Urine Mucus 0 SEEN Acetone Level NEGATIVE POC Glucose 338 H Management Discussion w/another healthcare provider: PCP Discharge Plan Triage Chief Complaint: Hyperglycemia ED Provider: Symone Rojas Dx/Rx/DC Orders Clinical Impression: Hyperglycemia Instructions: ED Diabetic Hyperglycemia Prescriptions: No Action levothyroxine 137 mcg tablet 137 mcg PO DAILY temazepam 30 mg capsule 30 mg PO QHS PRN (Reason: Insomnia) Primary Care Provider: Eamon Florian Referrals: Eamon Florian DO [Primary Care Provider] - Activity Restrictions/Additional Instructions: Please try to adhere to a diabetic diet as we discussed. Start taking the new diabetic medication your primary care doctor called in for you. If you start to feel lightheaded, sweaty or confused he is can be signs of low blood sugar. Please check your blood sugar at home if this happens. If you become unconscious please call 911. Please continue to follow-up outpatient with your primary care doctor. Disposition Disposition: Home, Self Care
[2023-05-24 20:15] LABS: Color, Urine Yellow (Yellow); Glucose, Dipstick 1000 mg/dl (Normal); Ketone-Dipstick Negative (Negative); Leukocyte Esterase-Dipstick 100 /ul (Negative); Mucous, Urine 0 SEEN /hpf (<or=2+); Nitrite-Dipstick Negative (Negative); Occult Blood-Urine 10 /ul (Negative); Protein-Dipstick Negative (Negative); Red Blood Cells-Urine 0 SEEN /hpf (0-5); Specific Gravity, Urine 1.015 (1.002-1.030); Urine Bilirubin Dipstick Negative (Negative); Urine Clarity Clear (Clear); Urine Urobilinogen Normal (Normal); Urine pH 6.5 (5.0 - 8.0)
[2023-05-24 20:15] LABS: Absolute Lymphocyte Count 1.93 X10^3/uL (0.83-4.51); Absolute Neutrophil Count 3.7 X10^3/uL (2.0-7.7); Basophil# 0.03 X10^3/uL; Basophil% 0.5 % (0-1); Eosinophil# 0.14 X10^3/uL; Eosinophils% 2.2 % (0-5); Hematocrit 43.3 % (37-47); Hemoglobin 14.7 g/dL (12.0-15.0); Lymphocyte # 1.93 X10^3/ul (0.83-4.51); Lymphocyte % 30.9 % (19-41); Mean Corp Hgb Conc 33.9 g/dL (32-36); Mean Corpuscular Volume 88.4 fL (81-99); Mean Platelet Vol. 10.1 fl (6.2-12.0); Monocyte% 6.4 % (0-10); NRBC Flagged by Analyzer 0 % (0-5); Neutrophil # 3.72 X10^3/uL (2.7-7.7); Neutrophil % 59.5 % (47-70); Platelet Count 222 K/mm3 (150-450); RBC Distribution Width CV 12.7 % (11.6-14.6); RBC Distribution Width SD 41.2 fl (35.1-43.9); White Blood Count 6.3 K/mm3 (4.4-11.0)
[2023-05-24 20:21] LABS: White Blood Cells 5-10 SEEN /hpf (0-5)
[2023-05-24 20:22] LABS: Bacteria RARE /hpf (None Seen); Squamous Epithelial Cells - UA 0-5 SEEN /hpf (5-10)
[2023-05-24] MEDS: 0.9% Normal Saline (1000mL) 1,000 ML 999 ML IV (20:25)
[2023-05-24 20:35] LABS: AST(SGOT) 77 U/L (15-37); Alanine Aminotransfer ALT/SGPT 172 U/L (13-56); Albumin, Serum 3.8 g/dL (3.2-5.0); Alkaline Phosphatase 134 U/L (45-117); Anion Gap 6 (5-15); BUN 18 mg/dL (7-18); BUN/Creat Ratio 17.1 RATIO (10-20); Calcium,Total 9.7 mg/dL (8.5-10.1); Chloride 103 mmol/L (98-107); Creatinine, Serum 1.05 mg/dL (0.55-1.02); EST Glomerular Filtration Rate 56 mL/min (>60); Est Glom Filt Rate - Afr Amer 68 mL/min (>60); Estimated Creatinine Clearance 56.04 ml/min; Globulin 3.8 g/dL (2.2-4.2); Glucose 473 mg/dL (74-106); Potassium 4.3 mmol/L (3.5-5.1); Protein, Total 7.6 g/dL (6.4-8.2); Sodium Level 136 mmol/L (136-145)
[2023-05-24 21:43] LABS: Bedside Glucose 338 mg/dL (74-106)
[2023-05-24 22:00] VITALS: BP 145/78; PULSE 81; RESP 16; O2SAT 99
[2023-05-24] MEDS: Insulin Lispro 100 UNIT/ML INSULN.PEN 8 UNIT SC (22:21)
[2023-05-24 22:42] VITALS: BP 145/78; PULSE 81; RESP 16; O2SAT 99
== END 2023-05-24 22:44 | disposition home or self-care (01) ==
PROVIDERS: Emergency Provider Emergency Medicine; PCP Family Medicine; Visit Provider Emergency Medicine
DX: E11.65 Type 2 diabetes mellitus with hyperglycemia (principal); H53.8 Other visual disturbances; Z87.891 Personal history of nicotine dependence; K21.9 Gastro-esophageal reflux disease without esophagitis; E03.9 Hypothyroidism, unspecified; Z79.890 Hormone replacement therapy; Z79.899 Other long term (current) drug therapy
CPT/HCPCS: 80053; 81001; 82009; 82962; 85025; 87086; 96360; 99283; J7030; A4216

== ENCOUNTER → 2023-07-03 | Outpatient (CLI) | payer OTHER, SELFPAY ==
--- NOTE | 2023-07-03 10:11 | BI_ITS ---
MAMMOGRAPHY - BILATERAL SCREENING REASON FOR EXAM: Female, 62 years old. Routine annual screening examination. PERTINENT HISTORY: Non-contributory. TECHNIQUE: Digital bilateral breast tatiana (3D mammographic acquisition) in the CC and MLO projections. 2-D mediolateral oblique (MLO) and craniocaudad (CC) views of both breasts were obtained. CAD: Full Field Digital Mammography with Computer Added Detection was performed. COMPARISON: Comparison is made with prior study dated June 13, 2022 and March 17, 2021. FINDINGS: Breast Composition: There are scattered areas of fibroglandular density. There are no dominant masses or suspicious calcifications. A tissue clip marker is seen in the lateral retroareolar region of the left breast. A patient with markers seen within the. The nodule has decreased in size as compared to prior study. No other significant abnormalities are identified. There has been no significant change since the prior study. BI/SCRN MAMM (CAD)W/TATIANA BILAT IMPRESSION: Stable bilateral screening mammogram. Yearly follow-up mammogram recommended. (A) ASSESSMENT CATEGORY: BIRADS Category 2: Benign. A letter regarding these results will be sent to the patient by the facility within 30 days. Approximately 10% of breast cancers are not detected by mammography. A normal mammogram should not delay biopsy of a clinically suspicious abnormality. [id number] Electronically Signed: Rhys Rubio MD at 12:38 EST ,
--- NOTE | 2023-07-03 10:12 | US_ITS ---
HISTORY: [facility] OF OVARIAN CA. TECHNIQUE: Transvaginal pelvic ultrasound was performed with villalpando scale and color Doppler evaluation. 40 images. COMPARISON: 06/08/2022. FINDINGS: UTERUS: Surgically absent. RIGHT OVARY: 1.1 x 1.3 x 2 cm with a 2 mm echogenic focus. No adnexal masses. LEFT OVARY: 1.2 x 1.4 x 2.4 cm. No adnexal masses. FREE FLUID: None. US/Transvaginal Non- IMPRESSION: Small calcification in the right ovary. No adnexal masses demonstrated. Electronically Signed: Cadence Muñoz MD at 9:11 EST ,
== END | disposition home or self-care (01) ==
PROVIDERS: PCP Family Medicine; Referring Provider Family Medicine; Visit Provider Family Medicine
DX: Z12.31 Encounter for screening mammogram for malignant neoplasm of breast (principal)
CPT/HCPCS: 76830; 77063; 77067

== ENCOUNTER → 2024-04-22 | Outpatient (CLI) | payer OTHER, SELFPAY ==
[2024-04-22 12:31] LABS: Absolute Lymphocyte Count 1.73 X10^3/uL (0.83-4.51); Absolute Neutrophil Count 4.1 X10^3/uL (2.0-7.7); Basophil# 0.04 X10^3/uL; Basophil% 0.6 % (0-1); Eosinophil# 0.13 X10^3/uL; Hematocrit 41.6 % (37-47); Hemoglobin 13.9 g/dL (12.0-15.0); Lymphocyte # 1.73 X10^3/ul (0.83-4.51); Mean Corp Hgb Conc 33.4 g/dL (32-36); Mean Corpuscular Hgb 29.8 pg (27.0-32.0); Mean Corpuscular Volume 89.3 fL (81-99); Mean Platelet Vol. 10.7 fl (6.2-12.0); Monocyte# 0.38 X10^3/uL; Monocyte% 5.9 % (0-10); NRBC Flagged by Analyzer 0 % (0-5); Neutrophil # 4.09 X10^3/uL (2.7-7.7); Neutrophil % 63.9 % (47-70); Platelet Count 218 K/mm3 (150-450); RBC Distribution Width CV 12.7 % (11.6-14.6); RBC Distribution Width SD 41.6 fl (35.1-43.9); Red Blood Count 4.66 M/mm3 (4.2-5.4); White Blood Count 6.4 K/mm3 (4.4-11.0)
[2024-04-22 12:54] LABS: Vitamin D,25 Hydroxy 20.3 ng/mL
[2024-04-22 14:27] LABS: ALB/GLOB Ratio 0.9 RATIO (0.9-2.4); AST(SGOT) 42 U/L (15-37); Alanine Aminotransfer ALT/SGPT 73 U/L (13-56); Albumin, Serum 3.7 g/dL (3.2-5.0); Alkaline Phosphatase 87 U/L (45-117); Anion Gap 4 (5-15); BUN 11 mg/dL (7-18); BUN/Creat Ratio 13.9 RATIO (10-20); Chloride 107 mmol/L (98-107); Cholesterol 239 mg/dL (200); Creatinine, Serum 0.79 mg/dL (0.55-1.02); EST Glomerular Filtration Rate 78 mL/min (>60); Est Glom Filt Rate - Afr Amer 94 mL/min (>60); Globulin 3.9 g/dL (2.2-4.2); Glucose 116 mg/dL (74-106); High Density Lipoprotein 42 mg/dL; Potassium 4.8 mmol/L (3.5-5.1); Protein, Total 7.6 g/dL (6.4-8.2); Sodium Level 139 mmol/L (136-145); T4 Free Direct 1.11 ng/dL (0.76-1.46); Triglycerides 279 mg/dL; Very Low Density Lipoprotein 56 mg/dL (5-40)
[2024-04-22 18:29] LABS: Microalbumin,Random Urine 11.2 mg/L (NO RANGE EST.); Microalbumin:Creatinine Ratio 14.5 mg/g CRE (<30 mg/g CRE)
== END | disposition home or self-care (01) ==
LOC: BFHLAB 10:32
PROVIDERS: PCP Family Medicine; Referring Provider Family Medicine; Visit Provider Family Medicine
DX: E11.9 Type 2 diabetes mellitus without complications (principal); E03.9 Hypothyroidism, unspecified; K76.0 Fatty (change of) liver, not elsewhere classified; E55.9 Vitamin D deficiency, unspecified
CPT/HCPCS: 36415; 80053; 80061; 82043; 82306; 82570; 84439; 84443; 85025

== ENCOUNTER → 2024-08-05 | Outpatient (CLI) | payer BC, SELFPAY ==
--- NOTE | 2024-08-05 12:36 | US_ITS ---
HISTORY: HX OF NEOPLASM OF OVARY. TECHNIQUE: Transvaginal pelvic ultrasound was performed with villalpando scale and color Doppler evaluation. 43 images. COMPARISON: None. FINDINGS: UTERUS: Surgically absent. RIGHT OVARY: 1 x 1 x 2 cm with 2 mm echogenic focus again seen. No adnexal masses. LEFT OVARY: 10.4 x 1.5 x 2.4 cm. No adnexal masses. FREE FLUID: None. US/Transvaginal Non- IMPRESSION: No significant interval change. Small right ovarian calcification. Electronically Signed: Cadence Muñoz MD at 9:41 EST ,
--- NOTE | 2024-08-05 12:36 | BI_ITS ---
MAMMOGRAPHY - BILATERAL SCREENING REASON FOR EXAM: Female, 63 years old. Routine annual screening examination. PERTINENT HISTORY: Non-contributory. Prior left ultrasound-guided breast biopsy. TECHNIQUE: Digital bilateral breast tatiana (3D mammographic acquisition) in the CC and MLO projections. 2-D mediolateral oblique (MLO) and craniocaudad (CC) views of both breasts were obtained. CAD: Full Field Digital Mammography with Computer Added Detection was performed. COMPARISON: Comparison is made with prior study July 03, 2023 and June 13, 2022. FINDINGS: Breast Composition: The breasts are almost entirely fatty. There are no dominant masses or suspicious calcifications. A tissue clip marker is once again seen in the lateral retroareolar region of the left breast. Stable appearance of the adjacent nodule. No other significant abnormalities are identified. There has been no significant change since the prior study. BI/SCRN MAMM (CAD)W/TATIANA BILAT IMPRESSION: Stable bilateral screening mammogram. Yearly follow-up mammogram recommended. (A) ASSESSMENT CATEGORY: BIRADS Category 2: Benign. A letter regarding these results will be sent to the patient by the facility within 30 days. Approximately 10% of breast cancers are not detected by mammography. A normal mammogram should not delay biopsy of a clinically suspicious abnormality. [id number] Electronically Signed: Rhys Rubio MD at 13:40 EST ,
== END | disposition home or self-care (01) ==
PROVIDERS: PCP Family Medicine; Referring Provider Family Medicine; Visit Provider Family Medicine
DX: Z12.31 Encounter for screening mammogram for malignant neoplasm of breast (principal); Z12.73 Encounter for screening for malignant neoplasm of ovary; Z80.41 Family history of malignant neoplasm of ovary
CPT/HCPCS: 76830; 77063; 77067

== ENCOUNTER → 2025-04-07 | Outpatient (CLI) | payer BC, SELFPAY ==
[2025-04-07 13:14] LABS: Hematocrit 44.1 % (37-47); Hemoglobin 14.8 g/dL (12.0-15.0); Immature Granulocytes Count 0.030 X10^3/uL (0.0-0.0); Mean Corp Hgb Conc 33.6 g/dL (32-36); Mean Corpuscular Volume 87.5 fL (81-99); Mean Platelet Vol. 10.3 fl (6.2-12.0); NRBC Flagged by Analyzer 0 % (0-5); Platelet Count 225 K/mm3 (150-450); RBC Distribution Width CV 13.2 % (11.6-14.6); RBC Distribution Width SD 42.1 fl (35.1-43.9); Red Blood Count 5.04 M/mm3 (4.2-5.4); White Blood Count 7.3 K/mm3 (4.4-11.0)
[2025-04-07 13:53] LABS: AST(SGOT) 42 U/L (<=31); Alanine Aminotransfer ALT/SGPT 77 U/L (<=34); Albumin, Serum 4.3 g/dL (3.4-4.8); Alkaline Phosphatase 84 U/L (35-104); Anion Gap 10 (5-15); BUN 12 mg/dL (4-19); BUN/Creat Ratio 14.2 RATIO (10-20); Calcium,Total 10.3 mg/dL (7.6-11.0); Carbon Dioxide 25.7 mmol/L (21.0-32.0); Chloride 105 mmol/L (98-108); Cholesterol 233 mg/dL (<=200); Globulin 3.4 g/dL (2.2-4.2); Glucose 103 mg/dL (70-99); Low Density Lipoprotein Calc. 158 mg/dL; Potassium 4.8 mmol/L (3.3-5.1); Triglycerides 138 mg/dL; Very Low Density Lipoprotein 28 mg/dL (5-40); cholesterol:hdl ratio screen 4.92
[2025-04-07 16:53] LABS: Creatinine, Urine (random) 85.20 mg/dL (28.00-217.00); Microalbumin,Random Urine < 12.0 mg/L (<20 mg/L)
[2025-04-07 17:14] LABS: Vitamin D,25 Hydroxy 34.7 ng/mL (30-100)
== END | disposition home or self-care (01) ==
LOC: BFHLAB 10:27
PROVIDERS: PCP Family Medicine; Visit Provider Family Medicine
DX: Z00.00 Encounter for general adult medical examination without abnormal findings (principal); E11.9 Type 2 diabetes mellitus without complications; E03.9 Hypothyroidism, unspecified; E55.9 Vitamin D deficiency, unspecified
CPT/HCPCS: 36415; 80053; 80061; 82043; 82306; 82570; 83036; 84439; 84443; 85025

== ENCOUNTER → 2025-07-21 | Outpatient (CLI) | payer BC, SELFPAY ==
[2025-07-21 13:01] LABS: AST(SGOT) 56 U/L (<=31); Alanine Aminotransfer ALT/SGPT 91 U/L (<=34); Albumin, Serum 4.2 g/dL (3.4-4.8); Alkaline Phosphatase 101 U/L (35-104); Bilirubin, Direct 0.25 mg/dL (0.00-0.30); Cholesterol 228 mg/dL (<=200); Globulin 3.6 g/dL (2.2-4.2); Low Density Lipoprotein Calc. 145 mg/dL; Triglycerides 205 mg/dL; Very Low Density Lipoprotein 41 mg/dL (5-40); cholesterol:hdl ratio screen 5.02
== END | disposition home or self-care (01) ==
LOC: BFHLAB 10:33
PROVIDERS: PCP Family Medicine; Visit Provider Family Medicine
DX: E11.9 Type 2 diabetes mellitus without complications (principal); K76.0 Fatty (change of) liver, not elsewhere classified; E03.9 Hypothyroidism, unspecified
CPT/HCPCS: 36415; 80061; 80076; 83036; 84439; 84443